=== PATIENT | female | born 1990 | race Caucasian/White ===

== ENCOUNTER 2018-01-28 14:29 | Emergency (ER) | payer OTHER, BC ==
--- NOTE | 2018-01-28 15:42 | CR ---
CLINICAL HISTORY: 27-year-old female with pain and swelling right ankle. INTERPRETATION: Bimalleolar soft tissue swelling and apparent ankle joint effusion consistent with in jury. Severe sprain. No sign of right ankle fracture or disruption of the tibiotalar mortise joint symmetry.
--- NOTE | 2018-01-28 16:14 | EDM.PDOC ---
Scribed by Batool Rand 01/28/18 1614 for Chris Ramirez PA ED HPI GENERAL MEDICAL PROBLEM - General Chief Complaint: Lower Extremity Injury/Pain Stated Complaint: TWISTED ANKLE AT WORK [id number] Time Seen by Provider: 01/28/18 14:42 Source of Information: Reports: Patient, RN, RN Notes Reviewed History Limitations: Reports: No Limitations - History of Present Illness INITIAL COMMENTS - FREE TEXT/NARRATIVE: Patient arrives with complaint of right ankle pain. She was walking down stairs leaning on a wall and rolled her ankle at 1400 today. Onset: Today Duration: Getting Worse Location: Reports: Lower Extremity, Right Quality: Reports: Ache Severity: Moderate Improves with: Reports: None Worsens with: Reports: None Associated Symptoms: Reports: No Other Symptoms Right Ankle Pain Score (Numeric/FACES): 9 - Related Data Allergies Allergy/AdvReac Type Severity Reaction Status Date / Time suprex Allergy Cannot Uncoded 01/28/18 14:35 Remember Home Meds: Home Meds . [No Known Home Meds] 01/28/18 [History] Past Medical History HEENT History: Reports: None Cardiovascular History: Reports: None Respiratory History: Reports: None Gastrointestinal History: Reports: None Genitourinary History: Reports: None MED SPA MANAGER History: Reports: None Neurological History: Reports: None Psychiatric History: Reports: None Endocrine/Metabolic History: Reports: None Hematologic History: Reports: None Immunologic History: Reports: None Oncologic (Cancer) History: Reports: None - Infectious Disease History Infectious Disease History: Reports: Chicken Pox - Past Surgical History Head Surgeries/Procedures: Reports: None Dermatological Surgical History: Reports: Other (See Below) Social & Family History - Family History Family Medical History: Noncontributory - Tobacco Use Smoking Status *Q: Current Some Day Smoker Years of Tobacco use: 6 Packs/Tins Daily: 0.1 - Caffeine Use Caffeine Use: Reports: Energy Drinks, Soda - Recreational Drug Use Recreational Drug Use: No Review of Systems - Review of Systems Review Of Systems: ROS reveals no pertinent complaints other than HPI. ED EXAM, GENERAL - Physical Exam Exam: See Below Exam Limited By: No Limitations General Appearance: Alert, WD/WN, No Apparent Distress Eye Exam: Bilateral Eye: Normal Inspection Ears: Normal External Exam, Normal Canal, Hearing Grossly Normal, Normal TMs Nose: Normal Inspection, Normal Mucosa, No Blood Throat/Mouth: Normal Inspection, Normal Lips, Normal Teeth, Normal Gums, Normal Oropharynx, Normal Voice, No Airway Compromise Head: Atraumatic, Normocephalic Neck: Normal Inspection, Supple, Non-Tender, Full Range of Motion Cardiovascular: Normal Peripheral Pulses, Regular Rate, Rhythm, No Edema, No Gallop, No JVD, No Murmur, No Rub GI/Abdominal: Normal Bowel Sounds, Soft, Non-Tender, No Organomegaly, No Distention, No Abnormal Bruit, No Mass (Female) Exam: Deferred Rectal (Female) Exam: Deferred Back Exam: Normal Inspection, Full Range of Motion, NT Extremities: Other (right ankle pain with reduced movement.) Neurological: Alert, Oriented, CN II-XII Intact, Normal Cognition, Normal Gait, Normal Reflexes, No Motor/Sensory Deficits Psychiatric: Normal Affect, Normal Mood Skin Exam: Warm, Dry, Intact, Normal Color, No Rash Lymphatic: No Adenopathy Course - Vital Signs Last Recorded V/S: Last Vital Signs Temp 36.7 C 01/28/18 14:40 Pulse 96 01/28/18 14:40 Resp 16 01/28/18 14:40 BP 140/67 01/28/18 14:40 Pulse Ox 98 01/28/18 14:40 - Orders/Labs/Meds Orders: Active Orders 24 hr Category Date Time Status DME for Discharge [COMM] Urgent Oth 01/28/18 16:09 Ordered - Radiology Interpretation Free Text/Narrative:: Right ankle x-ray: No sign of right ankle fracture or disruption of the tibiotalar mortise joint symmetry. See rad report. Departure - Departure Time of Disposition: 16:11 Disposition: Home, Self-Care 01 Condition: Fair Clinical Impression: Right ankle sprain Qualifiers: Encounter type: initial encounter Involved ligament of ankle: unspecified ligament Qualified Code(s): S93.401A - Sprain of unspecified ligament of right ankle, initial encounter - Discharge Information Instructions: Ankle Sprain, [id number] Forms: ED Department Discharge Care Plan Goals: The patient was advised of the examination and x-ray results during the visit. The patient was placed in an air splint for immobilization of her right ankle. The patient's brought in a set of crutches for her to use. The patient was encouraged to rest, ice, compress and elevate the injured area over the next 24 hours. If the patient has any additional symptoms or concerns, the patient should follow-up with her primary care facility or return to the emergency department. - My Orders Last 24 Hours: My Active Orders 01/28/18 16:09 DME for Discharge [COMM] Urgent - Assessment/Plan Last 24 Hours: My Active Orders 01/28/18 16:09 DME for Discharge [COMM] Urgent I have read and agree with the documentation that has been completed regarding this visit. By signing this record, I attest that the documentation was completed in my physical presence and is an accurate record of the encounter.
== END 2018-01-28 16:27 | disposition home or self-care (01) ==
LOC: DL.ED 14:29
DX: S93.401A Sprain of unspecified ligament of right ankle, initial encounter (principal); F17.210 Nicotine dependence, cigarettes, uncomplicated; Z88.8 Allergy status to other drugs, medicaments and biological substances; X50.9XXA Other and unspecified overexertion or strenuous movements or postures, initial encounter
CPT/HCPCS: 73610-RT; 99283

== ENCOUNTER 2018-04-14 06:09 | Emergency (ER) | payer BC, OTHER ==
--- NOTE | 2018-04-14 06:24 | EDM.PDOC ---
ED HPI GENERAL MEDICAL PROBLEM - General Stated Complaint: INJURED ANKLE [id number] Time Seen by Provider: 04/14/18 06:15 Source of Information: Reports: Patient History Limitations: Reports: No Limitations - History of Present Illness INITIAL COMMENTS - FREE TEXT/NARRATIVE: This 27 yo female patient reports to the ED with right medial ankle and foot pain. The patient reports she missed the bottom step last night while attempting to go to [facility] at about 2230. The patient reports that she attempted to walk on the foot/ankle after the incident, but could not do too much due to the pain. The patient reports she was not able to sleep due to increased pain in the medial foot and ankle with any movement. The patient reports that she had no loss of consciousness before, during or after the fall. Onset Date: 04/13/18 Onset Time: 22:30 Duration: Constant Location: Reports: Lower Extremity, Right Quality: Reports: Ache, Dull Severity: Moderate Improves with: Reports: Rest Worsens with: Reports: Movement Context: Reports: Activity Associated Symptoms: Reports: No Other Symptoms - Related Data Allergies Allergy/AdvReac Type Severity Reaction Status Date / Time suprex Allergy Cannot Uncoded 01/28/18 14:35 Remember Home Meds: Home Meds . [No Known Home Meds] 01/28/18 [History] Past Medical History HEENT History: Reports: None Cardiovascular History: Reports: None Respiratory History: Reports: None Gastrointestinal History: Reports: None Genitourinary History: Reports: None MANAGING PRINCIPAL History: Reports: None Neurological History: Reports: None Psychiatric History: Reports: None Endocrine/Metabolic History: Reports: None Hematologic History: Reports: None Immunologic History: Reports: None Oncologic (Cancer) History: Reports: None - Infectious Disease History Infectious Disease History: Reports: Chicken Pox - Past Surgical History Head Surgeries/Procedures: Reports: None Dermatological Surgical History: Reports: Other (See Below) Social & Family History - Family History Family Medical History: Noncontributory - Caffeine Use Caffeine Use: Reports: Energy Drinks, Soda Review of Systems - Review of Systems Review Of Systems: ROS reveals no pertinent complaints other than HPI. ED EXAM, GENERAL - Physical Exam Exam: See Below Exam Limited By: No Limitations General Appearance: Alert, WD/WN, Moderate Distress Eye Exam: Bilateral Eye: EOMI, Normal Inspection, PERRL Ears: Normal External Exam, Normal Canal, Hearing Grossly Normal, Normal TMs Nose: Normal Inspection, Normal Mucosa, No Blood Throat/Mouth: Normal Inspection, Normal Lips, Normal Teeth, Normal Gums, Normal Oropharynx, Normal Voice, No Airway Compromise Head: Atraumatic, Normocephalic Neck: Normal Inspection, Supple, Non-Tender, Full Range of Motion Respiratory/Chest: No Respiratory Distress, Lungs Clear, Normal Breath Sounds, No Accessory Muscle Use, Chest Non-Tender Cardiovascular: Normal Peripheral Pulses, Regular Rate, Rhythm, No Edema, No Gallop, No JVD, No Murmur, No Rub GI/Abdominal: Normal Bowel Sounds, Soft, Non-Tender, No Organomegaly, No Distention, No Abnormal Bruit, No Mass (Female) Exam: Deferred Rectal (Female) Exam: Deferred Back Exam: Normal Inspection, Full Range of Motion, NT Extremities: Leg Pain (right ankle and foot pain) Neurological: Alert, Oriented, CN II-XII Intact, Normal Cognition, Normal Gait, Normal Reflexes, No Motor/Sensory Deficits Psychiatric: Normal Affect, Normal Mood Skin Exam: Warm, Dry, Intact, Normal Color, No Rash Lymphatic: No Adenopathy Course - Orders/Labs/Meds Orders: Active Orders 24 hr Category Date Time Status Ankle Min 3V Rt [CR] Urgent Exams 04/14/18 06:12 Ordered Foot Comp Min 3V Rt [CR] Urgent Exams 04/14/18 06:12 Ordered Departure - Departure Time of Disposition: 18:42 Disposition: Home, Self-Care 01 Condition: Fair Clinical Impression: Right ankle strain Qualifiers: Encounter type: initial encounter Qualified Code(s): S96.911A - Strain of unspecified muscle and tendon at ankle and foot level, right foot, initial encounter - Discharge Information *PRESCRIPTION DRUG MONITORING PROGRAM REVIEWED*: Not Applicable *COPY OF PRESCRIPTION DRUG MONITORING REPORT IN PATIENT MONICA: Not Applicable Instructions: Ankle Sprain Forms: ED Department Discharge Care Plan Goals: The patient was advised of the examination and x-ray results during the visit. The patient was placed in a walking boot. The patient was encouraged to wear the boot over the next 2 weeks. If the patient continues to have pain and difficulties walking, the patient was encouraged to visit her primary care facility or return to the emergency department. - My Orders Last 24 Hours: My Active Orders 04/14/18 06:12 Ankle Min 3V Rt [CR] Urgent Foot Comp Min 3V Rt [CR] Urgent - Assessment/Plan Last 24 Hours: My Active Orders 04/14/18 06:12 Ankle Min 3V Rt [CR] Urgent Foot Comp Min 3V Rt [CR] Urgent
== END 2018-04-14 06:49 | disposition home or self-care (01) ==
LOC: DL.ED 06:09
DX: S96.911A Strain of unspecified muscle and tendon at ankle and foot level, right foot, initial encounter (principal); Z88.8 Allergy status to other drugs, medicaments and biological substances; W10.9XXA Fall (on) (from) unspecified stairs and steps, initial encounter
CPT/HCPCS: 73610-RT; 73630-RT; 99283

== ENCOUNTER 2022-05-25 05:39 | Emergency (ER) | payer OTHER ==
[2022-05-25] MEDS ORDERED: Sodium Chloride 0.9% 1,000 ML IV ONE (05:57)
[2022-05-25] MEDS ORDERED: Acetaminophen 500 MG Tab PO ONE (07:48)
[2022-05-25] MEDS ORDERED: metroNIDAZOLE 250 MG Tab PO ONE ×2 (07:51→09:19)
[2022-05-25] MEDS ORDERED: Ondansetron 4 MG/2 ML SDV IVPUSH ONE (07:51)
[2022-05-25] MEDS ORDERED: Ondansetron 4 MG Tab.DIS PO ONE (09:19)
[2022-06-17 14:42] LABS: SODIUM,NA 138 mmol/L (136-145)
[2022-06-17 14:43] LABS: ANION GAP 16.4 mEq/L (7-13); CHLORIDE,CL 103 mmol/L (98-107); ESTIMATED GFR 99 mL/min (>=60)
[2022-06-17 14:44] LABS: HEMOGLOBIN A1C 5.8 % (<5.7)
== END 2022-05-25 09:24 | disposition home or self-care (01) ==
LOC: DL.ED 05:39
DX: O23.591 Infection of other part of genital tract in pregnancy, first trimester (principal); R73.9 Hyperglycemia, unspecified; K59.00 Constipation, unspecified; Z3A.08 8 weeks gestation of pregnancy
CPT/HCPCS: 36415; 80053; 81001; 82150; 83036; 83690; 84702; 85025; 96361; 96374; 99284-25; A9270-GY; J2405; J7030

== ENCOUNTER 2022-05-25 22:31 | Emergency (ER) | payer OTHER ==
[2022-06-17 14:59] LABS: ANION GAP 19.8 mEq/L (7-13); CHLORIDE,CL 103 mmol/L (98-107); ESTIMATED GFR 59 mL/min (>=60); SODIUM,NA 137 mmol/L (136-145)
[2022-06-17 15:01] LABS: CORONAVIRUS COVID-19 NAA NEGATIVE (NEGATIVE); RESPIRATORY SYNCYTIAL VIR NAA NEGATIVE (NEGATIVE)
== END 2022-05-26 00:21 ==
LOC: DL.ED 22:31
DX: O00.90 Unspecified ectopic pregnancy without intrauterine pregnancy (principal); Z3A.08 8 weeks gestation of pregnancy
CPT/HCPCS: 0241U; 36415; 36430; 76801; 80053; 83605; 84145; 85027; 86140; 86850; 86900; 86901; 86920; 86922; 96361; 96374; 96376; 99285-25; P9016